=== PATIENT | male | born 1965 | race Hispanic/Latino ===

== ENCOUNTER 2019-02-22 13:25 | Emergency (ER) | payer OTHER ==
--- NOTE | 2019-02-22 13:34 | Event Note ---
ED Screening Note Date of service: 02/22/19 Time: 13:32 ED Screening Note: 53 y/o male comes in for delusional thoughts. This initial assessment/diagnostic orders/clinical plan/treatment(s) is/are subject to change based on patients health status, clinical progression and re- assessment by fellow clinical providers in the ED. Further treatment and workup at subsequent clinical providers discretion. Patient/guardian urged not to elope from the ED as their condition may be serious if not clinically assessed and managed. Initial orders include:
[2019-02-22 13:55] LABS: Bilirubin,Urine NEG (Negative); Blood,Urine NEG (Negative); Color,Urine Yellow (Yellow); Mucus,Urine FEW /HPF; Protein,Urine <15 mg/dL mg/dL (Negative); Urobilinogen,Urine < 2.0 mg/dL (<2.0)
[2019-02-22 14:02] LABS: Amphetamine Screen,Urine PRESUMPTIVE NEGATIVE; Benzodiazepines Screen,Urine PRESUMPTIVE NEGATIVE; Cannabinoid Screen,Urine PRESUMPTIVE NEGATIVE; Cocaine Screen,Urine PRESUMPTIVE NEGATIVE; Methadone Screen,Urine PRESUMPTIVE NEGATIVE; Opiate Screen,Urine PRESUMPTIVE NEGATIVE
[2019-02-22 14:06] LABS: Basophils # (Auto) 0.2 K/mm3 (0.0-0.1); Basophils % (Auto) 2.4 % (0.0-1.8); Eosinophils # (Auto) 0.3 K/mm3 (0.0-0.4); Eosinophils % (Auto) 4.1 % (0.0-4.3); Lymphocytes # (Auto) 1.6 K/mm3 (1.2-5.4); Lymphocytes % (Auto) 24.5 % (13.4-35.0); Mean Corpuscular HGB Conc 36 % (32-34); Mean Corpuscular Volume 99 fl (84-94); Monocytes # (Auto) 0.8 K/mm3 (0.0-0.8); Monocytes % (Auto) 12.7 % (0.0-7.3); Platelet Count 250 K/mm3 (140-440); Red Blood Count 4.58 M/mm3 (3.65-5.03); Red Cell Distribution Width 12.4 % (13.2-15.2)
[2019-02-22 14:07] LABS: Hematocrit 45.1 % (35.5-45.6); Hemoglobin 16.1 gm/dl (11.8-15.2)
[2019-02-22 14:31] LABS: Alanine Aminotransferase 49 units/L (7-56); Albumin 4.2 g/dL (3.9-5); BUN/Creatinine Ratio 14; Blood Urea Nitrogen 10 mg/dL (9-20); Calcium 9.3 mg/dL (8.4-10.2); Hemolysis Index 7
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
[2019-02-23] MEDS ORDERED: SOFOSBUVIR PO SCH (10:00)
[2019-02-23] MEDS ORDERED: NON-FORMULARY (Lisinopril/Hydrochlorothiazide [Zestoretic 20-12.5 Mg] 1 TAB) PO SCH (10:00)
[2019-02-23] MEDS ORDERED: VELPATASVIR PO SCH (10:00)
[2019-02-23] MEDS: ZESTRIL PO SCH (10:07)
[2019-02-23] MEDS: HCTZ PO SCH (10:07)
[2019-02-23] MEDS: NON-FORMULARY PO SCH (10:07)
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
[2019-02-24] MEDS: HCTZ PO SCH (09:30)
[2019-02-24] MEDS: NON-FORMULARY PO SCH (09:30)
[2019-02-24] MEDS: ZESTRIL PO SCH (09:30)
--- NOTE | 2019-02-24 15:20 | Progress Note ---
Subjective - Reason for Consult Consult date: 02/24/19 Reason for consult: Psychiatry Follow-up - Chief Complaint Chief complaint: "The TV is watching me" 53 y.o. white male who presented to the ER for delusional thoughts. Today the patient was calm during the assessment. He stated that the TV was watching him. He stated that "things" are coming from the TV. Also, the patient was asked to expand on his recreational drug use in the past. He stated that he used" meth" for a period of time before going go to custodial years ago. He stated that he was a patient on a "unit" (mental health or rehab, the patient isn't sure). in the past. The information that was provided by the patient today was new. He was asked about his substance abuse yesterday, he stated that he smoked marijuana "sometimes." Today he stated that he smoked marijuana "a couple of days ago." He denies SI/HI's and VH's. No indications of side effects of his medication. Mental Status Exam - Vital signs Last Vital Signs Temp 98.7 F 02/24/19 14:28 Pulse 79 02/24/19 14:28 Resp 16 02/24/19 14:28 BP 129/90 02/24/19 14:28 Pulse Ox 99 02/24/19 14:28 - Exam Narrative exam: MSE: Appearance: cooperative Behavior: regular eye contact Speech: regular rate and tone Mood: "okay" Affect: congruent to mood Thought Process: circumstantial Thought Content: denies SI/HI's and VH's, ideas of reference, somewhat paranoid Motor Activity: sitting up in bed Cognition: A/O x3 Insight: poor Judgment: variable to fair R I Assessment and Plan Impression: Mental 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 Today the patient was cooperative during the assessment. DDx: R/O Substance Induced Psychosis even though the patient's UDS is negative Recommendation/Plan: Continue 1013. and increase Zyprexa to 5 mg PO HS for psychosis and continue Melatonin 5 mg PO HS PRN for sleep. Discussed possible metabolic side of Zyprexa with the patient and his mother, they both verbalized understanding. Dispo: Reevaluate the patient in 24 hours to determine proper dspo. Staffed with Dr Lowell Flroes.
[2019-02-24] MEDS: MELATONIN PO PRN (22:12)
[2019-02-25] MEDS: NON-FORMULARY PO SCH (10:44)
[2019-02-25] MEDS: ZESTRIL PO SCH (10:44)
[2019-02-25] MEDS: HCTZ PO SCH (10:44)
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
[2019-02-26] MEDS: HCTZ PO SCH (11:00)
[2019-02-26] MEDS: NON-FORMULARY PO SCH (11:00)
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
[2019-02-26] MEDS: ZESTRIL PO SCH (11:31)
[2019-02-27] MEDS: HCTZ PO SCH (10:50)
[2019-02-27] MEDS: NON-FORMULARY PO SCH (10:50)
[2019-02-27] MEDS: ZESTRIL PO SCH (11:08)
--- NOTE | 2019-02-27 11:14 | Progress Note ---
Subjective - Reason for Consult Consult date: 02/27/19 Reason for consult: Psychiatry Follow-up - Chief Complaint Chief complaint: "Corrina" Patient is a 53 y.o. white male who presented to the ER for delusional thoughts. Today the patient is cooperative during the assessment. The patient continue to be delusional throughout the interview. Upon my arrival to his room, the patient was sitting in the dark. He has loose associations when asked questions. He denies SI/HI's and AVH's. No indications of side effects of his medications. Mental Status Exam - Vital signs Last Vital Signs Temp 97.8 F 02/27/19 10:10 Pulse 85 02/27/19 10:10 Resp 18 02/27/19 10:10 BP 134/91 02/27/19 10:10 Pulse Ox 100 02/27/19 10:10 - Exam Narrative exam: MSE: Appearance: cooperative Behavior: regular eye contact Speech: regular rate and tone Mood: "okay" Affect: congruent to mood Thought Process: loose associations Thought Content: denies SI/HI's and AVH's, delusional, paranoid Motor Activity: sitting up in bed Cognition: A/O x3 Insight: poor Judgment: variable R I Assessment and Plan Impression: Mental 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 Today the patient was cooperative during the assessment. DDx: R/O Substance Induced Psychosis even though the patient's UDS is negative Recommendation/Plan: Continue 1013. and Zyprexa 10 mg PO HS for for psychosis and Melatonin 5 mg PO HS PRN for sleep. Discussed possible metabolic side of Zyprexa with the patient and his mother, they both verbalized understanding. Dispo: The patient was referred to inpatient psy services. Will staff with Dr Lowell Flores.
[2019-02-27] MEDS: MELATONIN PO PRN (21:55)
[2019-02-28 02:41] VITALS: BP 115/71
== END 2019-02-28 04:46 ==
LOC: ED 13:25 → EEVIPCON 13:25 → ED 02-28 04:46
DX: F99 Mental disorder, not otherwise specified (principal); B19.20 Unspecified viral hepatitis C without hepatic coma; I10 Essential (primary) hypertension; F17.200 Nicotine dependence, unspecified, uncomplicated; Z79.899 Other long term (current) drug therapy
CPT/HCPCS: 36415; 70450; 80053; 80307; 80320; 81001; 82140; 85025; G0480